=== PATIENT | male | born 1970 | race Caucasian/White ===

== ENCOUNTER → 2018-09-13 | Emergency (ER) | payer MEDICAID ==
[~2018-09-13] VITALS: Ht 167.6 cm; Wt 77.1 kg
[~2018-09-13] MED LIST: LIDOCAINE 2% 1000 MG/50 ML VIAL INJ ONE; MORPHINE SULFATE 4 MG/ML SYR IVP ONE; NACL 0.9% 1,000 ML IV ONE
[2018-09-13 15:26] VITALS: BP 113/69
--- NOTE | 2018-09-13 15:33 | NUR ---
XR LT. LEG IN PROGRESS
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
--- NOTE | 2018-09-13 15:50 | NUR ---
Removed 4mg Morphine, administered 2mg, wasted 2mg.
--- NOTE | 2018-09-13 16:45 | NUR ---
er md resendiz by bedside performing laceration repair. patient tolerating well.
[2018-09-13 17:40] VITALS: BP 131/70
--- NOTE | 2018-09-13 17:40 | NUR ---
Patient discharged with v/s stable. Written and verbal after care instructions given and explained. Patient alert, oriented and verbalized understanding of instructions. Wheel Chair Assisted by brother. All questions addressed prior to discharge. ID band removed. Patient advised to follow up with PMD. Rx of NEOSPORIN, MOTRIN, AND TRAMADOL given. Patient educated on indication of medication including possible reaction and side effects. Opportunity to ask questions provided and answered.
== END | disposition home or self-care (01) ==
LOC: MED 15:09
DX: S81.812A Laceration without foreign body, left lower leg, initial encounter (principal); W27.8XXA Contact with other nonpowered hand tool, initial encounter; Y93.89 Activity, other specified; Y92.89 Other specified places as the place of occurrence of the external cause; Y99.8 Other external cause status
CPT/HCPCS: 12006; 73590; 82948; 96374; 99284; J2001; J2270; Q0092

== ENCOUNTER 2018-09-16 10:56 | Emergency (ER) | payer MEDICAID ==
[~2018-09-16] VITALS: Ht 167.6 cm; Wt 83.9 kg
[2018-09-16 11:30] VITALS: BP 124/64
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
[2018-09-16] MEDS ORDERED: BACITRACIN OINT 500 UNITS/GM PKT TP ONE (12:00)
--- NOTE | 2018-09-16 12:00 | NUR ---
WOUND CARE PERFORMED AT THIS TIME. SUTURE SITE TO LLL CLEANED, DRIED, BACITRACIN APPLIED WITH NEW DRESSING. PT TOLERATED WELL.
[2018-09-16 12:25] VITALS: BP 126/69
--- NOTE | 2018-09-16 12:26 | NUR ---
Patient discharged with v/s stable. Written and verbal after care instructions given and explained. Patient verbalized understanding. Ambulatory with steady gait. All questions addressed prior to discharge. Advised to follow up with PMD.
== END 2018-09-16 12:26 | disposition home or self-care (01) ==
LOC: MED 10:56
DX: S81.802D Unspecified open wound, left lower leg, subsequent encounter (principal); I10 Essential (primary) hypertension; X58.XXXD Exposure to other specified factors, subsequent encounter
CPT/HCPCS: 99283

== ENCOUNTER 2018-09-26 12:35 | Emergency (ER) | payer MEDICAID ==
[~2018-09-26] VITALS: Ht 165.1 cm; Wt 79.5 kg
[2018-09-26 12:55] VITALS: BP 135/69
--- NOTE | 2018-09-26 13:44 | NUR ---
PT TO BED 7 AT THIS TIME.
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
--- NOTE | 2018-09-26 14:15 | NUR ---
ER MD AT BEDSIDE EVALUATING.
[2018-09-26] MEDS ORDERED: BACITRACIN OINT 500 UNITS/GM PKT TP ONE (14:25)
[2018-09-26 14:36] VITALS: BP 133/65
--- NOTE | 2018-09-26 14:36 | NUR ---
Patient discharged with v/s stable. Written and verbal after care instructions given and explained. Patient alert, oriented and verbalized understanding of instructions. Ambulatory with steady gait. All questions addressed prior to discharge. ID band removed. Patient advised to follow up with PMD. Rx of ACETAMINOPHEN, IBUPROFEN given. Patient educated on indication of medication including possible reaction and side effects. Opportunity to ask questions provided and answered.
== END 2018-09-26 14:36 | disposition home or self-care (01) ==
LOC: MED 12:35
DX: S81.812D Laceration without foreign body, left lower leg, subsequent encounter (principal); I10 Essential (primary) hypertension; L40.9 Psoriasis, unspecified; X58.XXXD Exposure to other specified factors, subsequent encounter
CPT/HCPCS: 99282